=== PATIENT | female | born 1970 | race Caucasian/White ===

== ENCOUNTER → 2020-04-03 | Outpatient (CLI) | payer OTHER ==
[~2020-04-03] MED LIST: CIPROFLOXACIN500 M1 PO; CLEOCIN HCL150 MG PO; DOXYCYCLINE MO100 MG PO; FISH OIL 1,0001 EAC3 PO; GINKGO60 MG PO; HYDROCODON-ACE1 EAC2 PO; IBU800 MG PO; LYRICA150 MG PO; SILDENAFIL20 MG PO
== END ==
LOC: WCC 13:30
DX: S61.202D Unspecified open wound of right middle finger without damage to nail, subsequent encounter (principal); L03.012 Cellulitis of left finger; M86.142 Other acute osteomyelitis, left hand; F17.298 Nicotine dependence, other tobacco product, with other nicotine-induced disorders; X58.XXXD Exposure to other specified factors, subsequent encounter
CPT/HCPCS: G0463

== ENCOUNTER 2020-06-18 11:19 | Emergency (ER) | payer OTHER ==
[~2020-06-18 11:19] MED LIST changes: -CLEOCIN HCL150 MG PO
[2020-06-18 12:08] LABS: HEMOGLOBIN 15.6 gm/dl (12.3-15.3); RED BLOOD COUNT 5.23 M/UL (4.00-5.10); WHITE BLOOD COUNT 13.5 K/UL (4.5-11.0)
[2020-06-18 12:30] LABS: BUN/CREATININE RATIO 19 (0-10)
[2020-06-18] MEDS ORDERED: CLEOCIN HCL150 MG PO (14:55)
== END 2020-06-18 15:00 | disposition home or self-care (01) ==
LOC: ER1 11:19
PROVIDERS: Student in an Organized Health Care Education/Training Program
DX: T81.41XA Infection following a procedure, superficial incisional surgical site, initial encounter (principal); L03.012 Cellulitis of left finger; F17.290 Nicotine dependence, other tobacco product, uncomplicated; I10 Essential (primary) hypertension; Z88.2 Allergy status to sulfonamides; Z79.899 Other long term (current) drug therapy
CPT/HCPCS: 36415; 73130; 80053; 84702; 85025; 85652; 86140; 87070; 87205; 96374; 99283; J2270

== ENCOUNTER → 2020-06-26 | Outpatient (CLI) | payer OTHER ==
[~2020-06-26] MED LIST changes: +CLEOCIN HCL150 MG PO
== END ==
LOC: WCC 10:09
DX: S61.203A Unspecified open wound of left middle finger without damage to nail, initial encounter (principal); X58.XXXA Exposure to other specified factors, initial encounter
CPT/HCPCS: 87070; 87077; 87205